=== PATIENT | male | born 1940 | race Caucasian/White ===

== ENCOUNTER 2017-04-20 16:34 | Inpatient (IN) | payer MEDICARE ==
[~2017-04-20] VITALS: Ht 185.4 cm; Wt 121.0 kg
[2017-04-20] MEDS ORDERED: METHYLPREDNISOLONE SOD SUCC 125MG/2ML VIAL ONE (16:47)
[2017-04-20] MEDS ORDERED: MAGNESIUM 2GM PREMIX 50ML 50 ML IV ONE (16:47)
[2017-04-20 16:57] LABS: BASOPHILS % (AUTO) 0.4 % (0.0-5.0); EOSINOPHILS % (AUTO) 1.2 % (0.0-8.0); HEMATOCRIT 30.3 % (42-54); LYMPHOCYTES % (AUTO) 22.7 % (21.0-51.0); MEAN CORPUSCULAR HEMOGLOBIN 27.8 pg (27.0-33.0); MEAN CORPUSCULAR HGB CONC 33.4 g/dL (32.0-36.0); MEAN CORPUSCULAR VOLUME 83.2 fL (79-99); NEUTROPHILS % (AUTO) 66.7 % (40.0-77.0); PLATELET COUNT (AUTO) 294 K/uL (130-400); RED BLOOD CELL COUNT(AUTO) 3.64 MIL/uL (4.50-6.20); RED CELL DISTRIBUTION WIDTH 14.7 % (11.0-15.5); WHITE BLOOD COUNT (AUTO) 7.9 K/uL (4.8-10.8)
[2017-04-20] MEDS ORDERED: IPRATROPIUM/ALBUTEROL SULFATE 3 ML SOLUTION IH ONE ×2 (17:10→18:16)
[2017-04-20 17:17] LABS: B-TYPE NATRIURETIC PEPTIDE 39 pg/mL (0-100); CREATININE 1.5 mg/dL (0.5-1.5); POTASSIUM 3.8 mmol/L (3.5-5.1)
[2017-04-20 17:22] LABS: ALBUMIN 3.2 g/dL (3.5-5.0); BILIRUBIN,TOTAL 0.4 mg/dL (0.2-1.0); TOTAL PROTEIN, SERUM 6.3 g/dL (6.0-8.3)
[2017-04-20] MEDS ORDERED: MAG HYDROX/AL HYDROX/SIMETH ES 30 ML SUSP UDCUP PO PRN (17:30)
[2017-04-20] MEDS ORDERED: GUAIFENESIN-DM 200/20 MG 10 ML PO PRN (17:30)
[2017-04-20] MEDS ORDERED: ACETAMINOPHEN 325 MG TAB PO PRN ×2 (17:30)
[2017-04-20] MEDS ORDERED: LACTULOSE 20 GM/30 ML UDCUP PO PRN (17:30)
[2017-04-20] MEDS ORDERED: ONDANSETRON HCL 4 MG/2 ML VIAL IV PRN (17:30)
[2017-04-20] MEDS ORDERED: AZITHROMYCIN 500MG+NS 250ML 250 ML IV ONE (17:52)
[2017-04-20] MEDS ORDERED: SODIUM CHLORIDE 0.9% 1000ML 1,000 ML IV ONE (19:13)
[2017-04-20] MEDS ORDERED: OSELTAMIVIR PHOSPHATE 75 MG CAP ONE (19:13)
[2017-04-20] MEDS ORDERED: DOXYCYCLINE 100MG+NS 250ML 250 ML IV ONE (19:13)
[2017-04-20] MEDS: INSULIN HUMULIN R 100 UNIT/ML 3ML SQ SCH (21:00)
[2017-04-20] MEDS: SODIUM CHLORIDE 0.9% 1000ML 1,000 ML IV SCH (23:05)
[2017-04-20 23:45] VITALS: BP 141/92
[2017-04-21] MEDS ORDERED: TRAM-355 PO (00:39)
[2017-04-21] MEDS ORDERED: INSU200I SQ (00:39)
[2017-04-21] MEDS ORDERED: SIMV40TA5 PO (00:39)
[2017-04-21] MEDS ORDERED: APIX2.5T PO (00:39)
[2017-04-21] MEDS ORDERED: VALS1TAB81 PO (00:39)
[2017-04-21] MEDS ORDERED: TERA2CAP4 PO (00:39)
[2017-04-21] MEDS ORDERED: LEVO50 PO (00:39)
[2017-04-21] MEDS ORDERED: GLIP5TAB11 PO (00:39)
[2017-04-21] MEDS ORDERED: AMLO10TA2 PO (00:39)
[2017-04-21] MEDS ORDERED: INSU100I21 SQ (00:39)
[2017-04-21] MEDS ORDERED: METHYLPREDNISOLONE SOD SUCC 125MG/2ML VIAL ONE (01:31)
[2017-04-21] MEDS ORDERED: LEVOFLOXACIN 500 MG/D5W 100 ML 100 ML ONE (01:31)
[2017-04-21] MEDS: METHYLPREDNISOLONE SOD SUCC 125MG/2ML VIAL IVP SCH ×3 (01:37→17:27)
[2017-04-21] MEDS: LEVOFLOXACIN 500 MG/D5W 100 ML 100 ML IV SCH ×2 (01:37→02:37)
[2017-04-21] MEDS: IPRATROPIUM/ALBUTEROL SULFATE 3 ML SOLUTION IH SCH ×6 (02:33→21:30)
[2017-04-21 03:42] VITALS: BP 131/79
[2017-04-21 05:00] LABS: HEMATOCRIT 29.4 % (42-54); MEAN CORPUSCULAR HEMOGLOBIN 28.6 pg (27.0-33.0); MEAN CORPUSCULAR HGB CONC 34.2 g/dL (32.0-36.0); MEAN CORPUSCULAR VOLUME 83.8 fL (79-99); PLATELET COUNT (AUTO) 269 K/uL (130-400); RED BLOOD CELL COUNT(AUTO) 3.51 MIL/uL (4.50-6.20); RED CELL DISTRIBUTION WIDTH 14.5 % (11.0-15.5); WHITE BLOOD COUNT (AUTO) 4.7 K/uL (4.8-10.8)
[2017-04-21 05:07] LABS: CREATININE 1.4 mg/dL (0.5-1.5); POTASSIUM 4.2 mmol/L (3.5-5.1)
[2017-04-21] MEDS: INSULIN HUMULIN R 100 UNIT/ML 3ML SQ SCH ×4 (06:34→21:56)
[2017-04-21 07:00] VITALS: BP 146/99
[2017-04-21] MEDS: SODIUM CHLORIDE 0.9% 1000ML 1,000 ML IV SCH ×2 (07:00→08:56)
[2017-04-21] MEDS: OSELTAMIVIR PHOSPHATE 75 MG CAP PO SCH ×2 (08:56→21:59)
[2017-04-21] MEDS: PANTOPRAZOLE SODIUM 40 MG TABLET.DR PO SCH (08:56)
[2017-04-21] MEDS ORDERED: ENOXAPARIN SODIUM 40 MG/0.4 ML SYRINGE SQ SCH (09:00)
[2017-04-21] MEDS: DOXYCYCLINE 100MG+NS 250ML 250 ML IV SCH ×2 (10:08→22:00)
[2017-04-21 11:00] VITALS: BP 139/85
[2017-04-21] MEDS ORDERED: TRAMADOL /APAP 37.5MG/325MG TAB PO PRN (11:15)
[2017-04-21] MEDS: FUROSEMIDE 10 MG/ML 4ML VIAL IV SCH (12:25)
[2017-04-21 16:00] VITALS: BP 135/74
[2017-04-21] MEDS: INSULIN LISPRO 100 UNIT/ML 3ML SQ SCH (17:23)
[2017-04-21] MEDS: INSULIN DETEMIR 10ML 100 UNIT/ML 10ML SQ SCH (17:24)
[2017-04-21 20:00] VITALS: BP 149/77
[2017-04-21] MEDS: APIXABAN 2.5 MG TABLET PO SCH (21:59)
[2017-04-21] MEDS: ATORVASTATIN CALCIUM 20 MG TABLET PO SCH (21:59)
[2017-04-21] MEDS: TERAZOSIN HCL 2 MG CAPSULE PO SCH (22:00)
[2017-04-21] MEDS: GLIPIZIDE 5 MG TABLET PO SCH (22:00)
[2017-04-22] VITALS (7 sets, daily range): BP systolic 120–147; BP diastolic 73–93
[2017-04-22] MEDS: FUROSEMIDE 10 MG/ML 4ML VIAL IV SCH ×3 (00:22→21:08)
[2017-04-22] MEDS: IPRATROPIUM/ALBUTEROL SULFATE 3 ML SOLUTION IH SCH ×6 (01:53→21:52)
[2017-04-22] MEDS: METHYLPREDNISOLONE SOD SUCC 125MG/2ML VIAL IVP SCH ×3 (02:09→18:22)
[2017-04-22 04:19] LABS: HEMATOCRIT 30.1 % (42-54); MEAN CORPUSCULAR HGB CONC 33.7 g/dL (32.0-36.0); MEAN CORPUSCULAR VOLUME 83.2 fL (79-99); PLATELET COUNT (AUTO) 310 K/uL (130-400); RED BLOOD CELL COUNT(AUTO) 3.62 MIL/uL (4.50-6.20); RED CELL DISTRIBUTION WIDTH 14.4 % (11.0-15.5); WHITE BLOOD COUNT (AUTO) 9.9 K/uL (4.8-10.8)
[2017-04-22 04:36] LABS: CREATININE 1.5 mg/dL (0.5-1.5); POTASSIUM 3.9 mmol/L (3.5-5.1)
[2017-04-22 05:01] LABS: B-TYPE NATRIURETIC PEPTIDE 99 pg/mL (0-100)
[2017-04-22] MEDS: INSULIN HUMULIN R 100 UNIT/ML 3ML SQ SCH ×4 (07:15→21:10)
[2017-04-22] MEDS: INSULIN LISPRO 100 UNIT/ML 3ML SQ SCH ×3 (07:16→17:01)
[2017-04-22] MEDS: LEVOTHYROXINE 50 MCG TABLET PO SCH (07:17)
[2017-04-22] MEDS: INSULIN DETEMIR 10ML 100 UNIT/ML 10ML SQ SCH ×2 (07:59→17:01)
[2017-04-22] MEDS: DOXYCYCLINE 100MG+NS 250ML 250 ML IV SCH ×3 (08:43→23:07)
[2017-04-22] MEDS: GLIPIZIDE 5 MG TABLET PO SCH ×2 (08:44→21:07)
[2017-04-22] MEDS: APIXABAN 2.5 MG TABLET PO SCH ×2 (08:44→21:07)
[2017-04-22] MEDS: LOSARTAN/HYDROCHLOROTHIAZIDE 50-12.5MG TABLET PO SCH (08:44)
[2017-04-22] MEDS: OSELTAMIVIR PHOSPHATE 75 MG CAP PO SCH ×2 (08:44→21:07)
[2017-04-22] MEDS: PANTOPRAZOLE SODIUM 40 MG TABLET.DR PO SCH (08:44)
[2017-04-22] MEDS: AMLODIPINE BESYLATE 5 MG TAB PO SCH (08:44)
[2017-04-22] MEDS ORDERED: ALBUTEROL SULFATE 0.083% 2.5 MG/3 ML INH IH SCH (12:00)
[2017-04-22] MEDS: ACETYLCYSTEINE 20% 200MG/ML 4ML VIAL IH SCH ×2 (14:04→18:58)
[2017-04-22] MEDS: BUDESONIDE 0.5 MG/2 ML INH IH SCH (18:52)
[2017-04-22] MEDS: ATORVASTATIN CALCIUM 20 MG TABLET PO SCH (21:07)
[2017-04-22] MEDS: TERAZOSIN HCL 2 MG CAPSULE PO SCH (21:07)
[2017-04-23] MEDS: METHYLPREDNISOLONE SOD SUCC 125MG/2ML VIAL IVP SCH ×3 (00:37→17:34)
[2017-04-23] MEDS: LEVOFLOXACIN 500 MG/D5W 100 ML 100 ML IV SCH (00:37)
[2017-04-23] MEDS: IPRATROPIUM/ALBUTEROL SULFATE 3 ML SOLUTION IH SCH ×4 (01:21→18:53)
[2017-04-23 03:52] VITALS: BP 132/81
[2017-04-23 04:46] LABS: CREATININE 1.6 mg/dL (0.5-1.5); POTASSIUM 3.6 mmol/L (3.5-5.1)
[2017-04-23] MEDS: LEVOTHYROXINE 50 MCG TABLET PO SCH (06:27)
[2017-04-23] MEDS: INSULIN HUMULIN R 100 UNIT/ML 3ML SQ SCH ×4 (06:28→21:00)
[2017-04-23] MEDS: ACETYLCYSTEINE 20% 200MG/ML 4ML VIAL IH SCH (06:30)
[2017-04-23 07:00] VITALS: BP 127/80
[2017-04-23] MEDS: BUDESONIDE 0.5 MG/2 ML INH IH SCH ×2 (07:16→18:53)
[2017-04-23] MEDS: GLIPIZIDE 5 MG TABLET PO SCH ×2 (08:42→20:40)
[2017-04-23] MEDS: LOSARTAN/HYDROCHLOROTHIAZIDE 50-12.5MG TABLET PO SCH (08:42)
[2017-04-23] MEDS: OSELTAMIVIR PHOSPHATE 75 MG CAP PO SCH ×2 (08:42→20:40)
[2017-04-23] MEDS: AMLODIPINE BESYLATE 5 MG TAB PO SCH (08:42)
[2017-04-23] MEDS: APIXABAN 2.5 MG TABLET PO SCH ×2 (08:42→20:40)
[2017-04-23] MEDS: PANTOPRAZOLE SODIUM 40 MG TABLET.DR PO SCH (08:42)
[2017-04-23] MEDS: INSULIN DETEMIR 10ML 100 UNIT/ML 10ML SQ SCH ×2 (08:43→19:02)
[2017-04-23] MEDS: INSULIN LISPRO 100 UNIT/ML 3ML SQ SCH ×3 (08:44→17:32)
[2017-04-23 11:18] VITALS: BP 139/81
[2017-04-23 15:44] VITALS: BP 142/74
[2017-04-23 19:50] VITALS: BP 145/84
[2017-04-23] MEDS: ATORVASTATIN CALCIUM 20 MG TABLET PO SCH (20:40)
[2017-04-23] MEDS: TERAZOSIN HCL 2 MG CAPSULE PO SCH (20:40)
[2017-04-23] MEDS: DOXYCYCLINE 100MG+NS 250ML 250 ML IV SCH (20:41)
[2017-04-23 23:51] VITALS: BP 115/65
[2017-04-24] MEDS: IPRATROPIUM/ALBUTEROL SULFATE 3 ML SOLUTION IH SCH ×4 (00:05→18:40)
[2017-04-24] MEDS: LEVOFLOXACIN 500 MG/D5W 100 ML 100 ML IV SCH (00:21)
[2017-04-24] MEDS: METHYLPREDNISOLONE SOD SUCC 125MG/2ML VIAL IVP SCH ×3 (02:16→18:09)
[2017-04-24 03:54] VITALS: BP 130/87
[2017-04-24 06:09] LABS: CREATININE 1.3 mg/dL (0.5-1.5); POTASSIUM 3.3 mmol/L (3.5-5.1)
[2017-04-24] MEDS: LEVOTHYROXINE 50 MCG TABLET PO SCH (06:39)
[2017-04-24] MEDS: INSULIN LISPRO 100 UNIT/ML 3ML SQ SCH ×3 (06:50→17:04)
[2017-04-24] MEDS: INSULIN HUMULIN R 100 UNIT/ML 3ML SQ SCH ×4 (06:52→21:00)
[2017-04-24 07:00] VITALS: BP 127/81
[2017-04-24] MEDS: BUDESONIDE 0.5 MG/2 ML INH IH SCH ×2 (07:08→18:55)
[2017-04-24] MEDS: DOXYCYCLINE 100MG+NS 250ML 250 ML IV SCH ×2 (08:17→22:06)
[2017-04-24] MEDS: GLIPIZIDE 5 MG TABLET PO SCH ×2 (08:17→22:05)
[2017-04-24] MEDS: OSELTAMIVIR PHOSPHATE 75 MG CAP PO SCH ×2 (08:17→22:05)
[2017-04-24] MEDS: AMLODIPINE BESYLATE 5 MG TAB PO SCH (08:17)
[2017-04-24] MEDS: PANTOPRAZOLE SODIUM 40 MG TABLET.DR PO SCH (08:17)
[2017-04-24] MEDS: LOSARTAN/HYDROCHLOROTHIAZIDE 50-12.5MG TABLET PO SCH (08:17)
[2017-04-24] MEDS: APIXABAN 2.5 MG TABLET PO SCH ×2 (08:17→22:05)
[2017-04-24] MEDS: INSULIN GLARGINE 100 UNITS/ML 10 ML VIAL SQ SCH ×2 (08:25→17:03)
[2017-04-24 11:19] VITALS: BP 144/95
[2017-04-24] MEDS ORDERED: GUAIFENESIN-CODEINE 5 ML SYRUP PO PRN (11:45)
[2017-04-24] MEDS: FUROSEMIDE 10 MG/ML 2ML VIAL IV SCH (12:09)
[2017-04-24 16:00] VITALS: BP 131/87
[2017-04-24] MEDS: ACETYLCYSTEINE 20% 200MG/ML 4ML VIAL IH SCH ×2 (18:41→21:00)
[2017-04-24 20:00] VITALS: BP 127/81
[2017-04-24] MEDS: TERAZOSIN HCL 2 MG CAPSULE PO SCH (22:05)
[2017-04-24] MEDS: ATORVASTATIN CALCIUM 20 MG TABLET PO SCH (22:05)
[2017-04-25] VITALS: BP 111/68
[2017-04-25] MEDS: IPRATROPIUM/ALBUTEROL SULFATE 3 ML SOLUTION IH SCH ×4 (00:17→19:00)
[2017-04-25] MEDS: METHYLPREDNISOLONE SOD SUCC 125MG/2ML VIAL IVP SCH ×3 (02:31→18:01)
[2017-04-25] MEDS: LEVOFLOXACIN 500 MG/D5W 100 ML 100 ML IV SCH (02:32)
[2017-04-25 04:00] VITALS: BP 110/72
[2017-04-25] MEDS: LEVOTHYROXINE 50 MCG TABLET PO SCH (06:39)
[2017-04-25] MEDS: INSULIN LISPRO 100 UNIT/ML 3ML SQ SCH ×3 (06:43→16:57)
[2017-04-25] MEDS: INSULIN HUMULIN R 100 UNIT/ML 3ML SQ SCH ×4 (06:45→21:21)
[2017-04-25 06:51] LABS: CREATININE 1.6 mg/dL (0.5-1.5); POTASSIUM 3.1 mmol/L (3.5-5.1)
[2017-04-25] MEDS: BUDESONIDE 0.5 MG/2 ML INH IH SCH ×2 (07:12→19:11)
[2017-04-25 08:00] VITALS: BP 124/70
[2017-04-25] MEDS: INSULIN GLARGINE 100 UNITS/ML 10 ML VIAL SQ SCH ×2 (08:08→16:56)
[2017-04-25] MEDS: APIXABAN 2.5 MG TABLET PO SCH ×2 (08:09→21:10)
[2017-04-25] MEDS: DOXYCYCLINE 100MG+NS 250ML 250 ML IV SCH ×2 (08:09→21:10)
[2017-04-25] MEDS: FUROSEMIDE 10 MG/ML 2ML VIAL IV SCH (08:09)
[2017-04-25] MEDS: AMLODIPINE BESYLATE 5 MG TAB PO SCH (08:09)
[2017-04-25] MEDS: OSELTAMIVIR PHOSPHATE 75 MG CAP PO SCH (08:10)
[2017-04-25] MEDS: PANTOPRAZOLE SODIUM 40 MG TABLET.DR PO SCH (08:10)
[2017-04-25] MEDS: LOSARTAN/HYDROCHLOROTHIAZIDE 50-12.5MG TABLET PO SCH (08:10)
[2017-04-25] MEDS: GLIPIZIDE 5 MG TABLET PO SCH ×2 (08:10→21:10)
[2017-04-25] MEDS ORDERED: ACETYLCYSTEINE 20% 200MG/ML 4ML VIAL IH SCH (11:30)
[2017-04-25 11:37] VITALS: BP 104/63
[2017-04-25] MEDS: ACETYLCYSTEINE 20% 200MG/ML 4ML VIAL IH SCH ×2 (14:00→21:00)
[2017-04-25 16:00] VITALS: BP 105/64
[2017-04-25 19:00] VITALS: BP 134/72
[2017-04-25] MEDS: ATORVASTATIN CALCIUM 20 MG TABLET PO SCH (21:11)
[2017-04-25] MEDS: TERAZOSIN HCL 2 MG CAPSULE PO SCH (21:17)
[2017-04-26] VITALS: BP 119/74
[2017-04-26] MEDS: IPRATROPIUM/ALBUTEROL SULFATE 3 ML SOLUTION IH SCH ×4 (00:34→19:44)
[2017-04-26] MEDS: METHYLPREDNISOLONE SOD SUCC 125MG/2ML VIAL IVP SCH ×3 (01:31→18:24)
[2017-04-26] MEDS: LEVOFLOXACIN 500 MG/D5W 100 ML 100 ML IV SCH (01:31)
[2017-04-26 04:00] VITALS: BP 130/77
[2017-04-26] MEDS ORDERED: ACETYLCYSTEINE 20% 200MG/ML 4ML VIAL ONE (06:12)
[2017-04-26] MEDS: LEVOTHYROXINE 50 MCG TABLET PO SCH (06:36)
[2017-04-26] MEDS: INSULIN HUMULIN R 100 UNIT/ML 3ML SQ SCH ×4 (06:44→20:52)
[2017-04-26] MEDS: INSULIN LISPRO 100 UNIT/ML 3ML SQ SCH ×3 (06:45→18:30)
[2017-04-26 07:00] VITALS: BP 132/53
[2017-04-26 07:26] LABS: CREATININE 1.5 mg/dL (0.5-1.5)
[2017-04-26 07:29] LABS: POTASSIUM 2.6 mmol/L (3.5-5.1)
[2017-04-26] MEDS: ACETYLCYSTEINE 20% 200MG/ML 4ML VIAL IH SCH (07:35)
[2017-04-26] MEDS: BUDESONIDE 0.5 MG/2 ML INH IH SCH ×2 (08:02→20:02)
[2017-04-26] MEDS: PANTOPRAZOLE SODIUM 40 MG TABLET.DR PO SCH (10:58)
[2017-04-26] MEDS: DOXYCYCLINE 100MG+NS 250ML 250 ML IV SCH ×2 (10:58→20:45)
[2017-04-26] MEDS: AMLODIPINE BESYLATE 5 MG TAB PO SCH (10:58)
[2017-04-26] MEDS: GLIPIZIDE 5 MG TABLET PO SCH ×2 (10:58→20:46)
[2017-04-26] MEDS: APIXABAN 2.5 MG TABLET PO SCH ×2 (10:58→20:45)
[2017-04-26] MEDS: INSULIN GLARGINE 100 UNITS/ML 10 ML VIAL SQ SCH ×2 (11:01→18:29)
[2017-04-26 12:11] VITALS: BP 133/68
[2017-04-26] MEDS ORDERED: POTASSIUM CHLORIDE 10% ELIXIR 20 MEQ/15 ML UDCUP PO PRN (14:15)
[2017-04-26] MEDS ORDERED: LIDOCAINE HCL-MPF 1% 2ML VIAL IVP PRN (14:15)
[2017-04-26] MEDS ORDERED: POTASSIUM CHLORIDE 20MEQ/100ML 100 ML IV PRN (14:15)
[2017-04-26] MEDS: POTASSIUM CHLORIDE 20 MEQ ERTAB PO PRN ×5 (15:26→20:46)
[2017-04-26 16:00] VITALS: BP 157/85
[2017-04-26 19:00] VITALS: BP 131/83
[2017-04-26] MEDS: ATORVASTATIN CALCIUM 20 MG TABLET PO SCH (20:45)
[2017-04-26] MEDS: TERAZOSIN HCL 2 MG CAPSULE PO SCH (20:45)
[2017-04-27] VITALS (9 sets, daily range): BP systolic 80–145; BP diastolic 48–85
[2017-04-27] MEDS: LEVOFLOXACIN 500 MG/D5W 100 ML 100 ML IV SCH (01:07)
[2017-04-27] MEDS: METHYLPREDNISOLONE SOD SUCC 125MG/2ML VIAL IVP SCH ×3 (01:07→18:00)
[2017-04-27] MEDS: IPRATROPIUM/ALBUTEROL SULFATE 3 ML SOLUTION IH SCH (01:31)
[2017-04-27 01:37] LABS: HEMATOCRIT 26.4 % (42-54)
[2017-04-27 04:39] LABS: HEMATOCRIT 25.5 % (42-54)
[2017-04-27 04:40] LABS: CREATININE 1.9 mg/dL (0.5-1.5); POTASSIUM 3.6 mmol/L (3.5-5.1)
[2017-04-27 05:02] LABS: INR 1.15 (0.85-1.15); PARTIAL THROMBOPLASTIN TIME 22.7 SEC (26.3-35.5)
[2017-04-27] MEDS: INSULIN HUMULIN R 100 UNIT/ML 3ML SQ SCH ×4 (06:21→20:39)
[2017-04-27] MEDS: INSULIN LISPRO 100 UNIT/ML 3ML SQ SCH ×3 (06:21→17:52)
[2017-04-27] MEDS: LEVOTHYROXINE 50 MCG TABLET PO SCH (06:22)
[2017-04-27] MEDS: IPRATROPIUM 0.5 MG/2.5 ML INH IH PRN ×4 (07:19→23:43)
[2017-04-27] MEDS: BUDESONIDE 0.5 MG/2 ML INH IH SCH ×2 (07:36→19:41)
[2017-04-27] MEDS: INSULIN GLARGINE 100 UNITS/ML 10 ML VIAL SQ SCH ×2 (08:00→17:56)
[2017-04-27] MEDS: AMLODIPINE BESYLATE 5 MG TAB PO SCH (09:00)
[2017-04-27] MEDS: PANTOPRAZOLE SODIUM 40 MG TABLET.DR PO SCH (09:00)
[2017-04-27] MEDS: GLIPIZIDE 5 MG TABLET PO SCH ×2 (09:00→20:37)
[2017-04-27] MEDS: LOSARTAN 100 MG TABLET PO SCH ×2 (09:00→18:02)
[2017-04-27] MEDS: DOXYCYCLINE 100MG+NS 250ML 250 ML IV SCH ×2 (10:54→20:37)
[2017-04-27] MEDS: TERAZOSIN HCL 2 MG CAPSULE PO SCH (20:37)
[2017-04-27] MEDS: ATORVASTATIN CALCIUM 20 MG TABLET PO SCH (20:38)
[2017-04-28] VITALS (9 sets, daily range): BP systolic 102–131; BP diastolic 57–83
[2017-04-28] MEDS: LEVOFLOXACIN 500 MG/D5W 100 ML 100 ML IV SCH (01:13)
[2017-04-28] MEDS: METHYLPREDNISOLONE SOD SUCC 125MG/2ML VIAL IVP SCH ×3 (01:56→18:29)
[2017-04-28 04:30] LABS: HEMATOCRIT 25.3 % (42-54)
[2017-04-28 04:38] LABS: CREATININE 1.8 mg/dL (0.5-1.5); POTASSIUM 3.3 mmol/L (3.5-5.1)
[2017-04-28] MEDS: INSULIN HUMULIN R 100 UNIT/ML 3ML SQ SCH ×4 (05:26→20:29)
[2017-04-28] MEDS: LEVOTHYROXINE 50 MCG TABLET PO SCH (06:27)
[2017-04-28] MEDS: POTASSIUM CHLORIDE 20 MEQ ERTAB PO PRN (06:27)
[2017-04-28] MEDS: INSULIN LISPRO 100 UNIT/ML 3ML SQ SCH ×3 (06:30→18:23)
[2017-04-28] MEDS: INSULIN GLARGINE 100 UNITS/ML 10 ML VIAL SQ SCH ×2 (06:31→18:27)
[2017-04-28] MEDS: IPRATROPIUM 0.5 MG/2.5 ML INH IH PRN ×4 (07:28→23:45)
[2017-04-28] MEDS: BUDESONIDE 0.5 MG/2 ML INH IH SCH ×2 (07:28→11:58)
[2017-04-28] MEDS: LOSARTAN 100 MG TABLET PO SCH (09:00)
[2017-04-28] MEDS: AMLODIPINE BESYLATE 5 MG TAB PO SCH (09:00)
[2017-04-28] MEDS: GLIPIZIDE 5 MG TABLET PO SCH ×2 (10:34→20:21)
[2017-04-28] MEDS: DOXYCYCLINE 100MG+NS 250ML 250 ML IV SCH ×2 (10:34→20:21)
[2017-04-28] MEDS: PANTOPRAZOLE SODIUM 40 MG TABLET.DR PO SCH (10:34)
[2017-04-28] MEDS ORDERED: INSULIN LISPRO 100 UNIT/ML 3ML SQ ONE (17:59)
[2017-04-28] MEDS: TERAZOSIN HCL 2 MG CAPSULE PO SCH (20:21)
[2017-04-28] MEDS: ATORVASTATIN CALCIUM 20 MG TABLET PO SCH (20:21)
[2017-04-28 21:57] LABS: APPEARANCE BODY FLUID BLOODY (CLEAR); COLOR,BODY FLUID RED (LT YELLOW); SPECIMENTYPE,BODY FLUID PLEURAL
[2017-04-28 21:58] LABS: BODY FLUID RBC 355000 /cu. mm.; BODY FLUID WBC 1550 /cu. mm.; TOTAL VOLUME,BODY FLUID 1000 mL
[2017-04-28 22:08] LABS: BF LYMPHOCYTE 11 %; BF MESOTHELIAL 26 %
[2017-04-29] VITALS: BP 104/65
[2017-04-29] MEDS: LEVOFLOXACIN 500 MG/D5W 100 ML 100 ML IV SCH (01:08)
[2017-04-29] MEDS: METHYLPREDNISOLONE SOD SUCC 125MG/2ML VIAL IVP SCH (02:02)
[2017-04-29 04:00] VITALS: BP 109/69
[2017-04-29 05:48] LABS: HEMATOCRIT 25.7 % (42-54); MEAN CORPUSCULAR HEMOGLOBIN 28.1 pg (27.0-33.0); MEAN CORPUSCULAR HGB CONC 34.1 g/dL (32.0-36.0); MEAN CORPUSCULAR VOLUME 82.2 fL (79-99); PLATELET COUNT (AUTO) 217 K/uL (130-400); RED BLOOD CELL COUNT(AUTO) 3.12 MIL/uL (4.50-6.20); RED CELL DISTRIBUTION WIDTH 14.6 % (11.0-15.5); WHITE BLOOD COUNT (AUTO) 9.8 K/uL (4.8-10.8)
[2017-04-29 05:57] LABS: CREATININE 1.5 mg/dL (0.5-1.5); POTASSIUM 3.5 mmol/L (3.5-5.1)
[2017-04-29 06:05] LABS: B-TYPE NATRIURETIC PEPTIDE 26 pg/mL (0-100)
[2017-04-29] MEDS: LEVOTHYROXINE 50 MCG TABLET PO SCH ×2 (06:25→06:33)
[2017-04-29] MEDS: POTASSIUM CHLORIDE 20 MEQ ERTAB PO PRN ×2 (06:25→06:33)
[2017-04-29] MEDS: INSULIN GLARGINE 100 UNITS/ML 10 ML VIAL SQ SCH ×2 (06:27→17:50)
[2017-04-29] MEDS: INSULIN LISPRO 100 UNIT/ML 3ML SQ SCH ×3 (06:28→17:52)
[2017-04-29] MEDS: IPRATROPIUM 0.5 MG/2.5 ML INH IH PRN ×3 (06:51→18:19)
[2017-04-29 07:00] VITALS: BP 118/46
[2017-04-29] MEDS: BUDESONIDE 0.5 MG/2 ML INH IH SCH ×2 (07:06→18:19)
[2017-04-29] MEDS: INSULIN HUMULIN R 100 UNIT/ML 3ML SQ SCH ×4 (07:30→21:00)
[2017-04-29] MEDS: PANTOPRAZOLE SODIUM 40 MG TABLET.DR PO SCH (10:26)
[2017-04-29] MEDS: AMLODIPINE BESYLATE 5 MG TAB PO SCH (10:26)
[2017-04-29] MEDS: LOSARTAN 100 MG TABLET PO SCH (10:26)
[2017-04-29] MEDS: FUROSEMIDE 10 MG/ML 2ML VIAL IV SCH ×2 (10:27→23:18)
[2017-04-29] MEDS: GLIPIZIDE 5 MG TABLET PO SCH ×2 (10:27→23:19)
[2017-04-29] MEDS: DOXYCYCLINE 100MG+NS 250ML 250 ML IV SCH ×2 (10:27→23:18)
[2017-04-29 11:00] VITALS: BP 115/78
[2017-04-29] MEDS ORDERED: METOPROLOL TARTRATE 25 MG TAB ONE (12:32)
[2017-04-29] MEDS: METOPROLOL TARTRATE 25 MG TAB PO SCH ×2 (12:54→23:20)
[2017-04-29 16:00] VITALS: BP_SYST 116; BP_SYST 145; BP_DIAS 68; BP_DIAS 95
[2017-04-29 20:00] VITALS: BP 113/64
[2017-04-29] MEDS ORDERED: METHYLPREDNISOLONE SOD SUCC 40MG/ML 1ML IVP SCH (21:00)
[2017-04-29] MEDS: ATORVASTATIN CALCIUM 20 MG TABLET PO SCH (23:19)
[2017-04-29] MEDS: TERAZOSIN HCL 2 MG CAPSULE PO SCH (23:19)
[2017-04-30] VITALS (7 sets, daily range): BP systolic 91–157; BP diastolic 49–100
[2017-04-30] MEDS: IPRATROPIUM 0.5 MG/2.5 ML INH IH PRN ×4 (00:18→18:14)
[2017-04-30] MEDS: LEVOFLOXACIN 500 MG/D5W 100 ML 100 ML IV SCH (02:08)
[2017-04-30 04:33] LABS: HEMATOCRIT 26.1 % (42-54); MEAN CORPUSCULAR HEMOGLOBIN 27.1 pg (27.0-33.0); MEAN CORPUSCULAR HGB CONC 33.5 g/dL (32.0-36.0); MEAN CORPUSCULAR VOLUME 81.1 fL (79-99); PLATELET COUNT (AUTO) 229 K/uL (130-400); RED BLOOD CELL COUNT(AUTO) 3.22 MIL/uL (4.50-6.20); RED CELL DISTRIBUTION WIDTH 14.8 % (11.0-15.5)
[2017-04-30 04:45] LABS: B-TYPE NATRIURETIC PEPTIDE 34 pg/mL (0-100)
[2017-04-30 05:03] LABS: CREATININE 1.5 mg/dL (0.5-1.5); POTASSIUM 3.3 mmol/L (3.5-5.1)
[2017-04-30] MEDS: INSULIN HUMULIN R 100 UNIT/ML 3ML SQ SCH ×4 (06:08→21:00)
[2017-04-30] MEDS: INSULIN LISPRO 100 UNIT/ML 3ML SQ SCH ×4 (06:26→17:00)
[2017-04-30] MEDS: LEVOTHYROXINE 50 MCG TABLET PO SCH (06:26)
[2017-04-30] MEDS: POTASSIUM CHLORIDE 20 MEQ ERTAB PO PRN ×3 (06:27→23:05)
[2017-04-30] MEDS: BUDESONIDE 0.5 MG/2 ML INH IH SCH (07:40)
[2017-04-30] MEDS: LOSARTAN 100 MG TABLET PO SCH (09:00)
[2017-04-30] MEDS: INSULIN GLARGINE 100 UNITS/ML 10 ML VIAL SQ SCH ×2 (09:30→17:00)
[2017-04-30] MEDS: DOXYCYCLINE 100MG+NS 250ML 250 ML IV SCH (09:38)
[2017-04-30] MEDS: GLIPIZIDE 5 MG TABLET PO SCH ×2 (09:40→21:21)
[2017-04-30] MEDS: PANTOPRAZOLE SODIUM 40 MG TABLET.DR PO SCH (09:40)
[2017-04-30] MEDS: FUROSEMIDE 10 MG/ML 2ML VIAL IV SCH ×2 (09:40→21:22)
[2017-04-30] MEDS: METOPROLOL TARTRATE 25 MG TAB PO SCH ×2 (09:57→21:27)
[2017-04-30] MEDS ORDERED: PHARMACY COMMUNICATION MISC SCH (20:15)
[2017-04-30] MEDS: TERAZOSIN HCL 2 MG CAPSULE PO SCH (21:21)
[2017-04-30] MEDS: ATORVASTATIN CALCIUM 20 MG TABLET PO SCH (21:21)
[2017-04-30] MEDS: DOXYCYCLINE HYCLATE 100 MG TABLET PO SCH (21:21)
[2017-05-01] MEDS: LEVOFLOXACIN 500 MG/D5W 100 ML 100 ML IV SCH (01:25)
[2017-05-01 03:28] VITALS: BP 98/60
[2017-05-01 05:56] LABS: HEMATOCRIT 26.1 % (42-54); MEAN CORPUSCULAR HGB CONC 34.4 g/dL (32.0-36.0); MEAN CORPUSCULAR VOLUME 81.3 fL (79-99); NUCLEATED RED BLOOD CELLS 0.1 % (0.0-0.19); PLATELET COUNT (AUTO) 219 K/uL (130-400); RED BLOOD CELL COUNT(AUTO) 3.21 MIL/uL (4.50-6.20); RED CELL DISTRIBUTION WIDTH 14.7 % (11.0-15.5); WHITE BLOOD COUNT (AUTO) 7.3 K/uL (4.8-10.8)
[2017-05-01 06:09] LABS: CREATININE 1.4 mg/dL (0.5-1.5); POTASSIUM 3.4 mmol/L (3.5-5.1)
[2017-05-01] MEDS: IPRATROPIUM 0.5 MG/2.5 ML INH IH PRN ×4 (06:33→23:08)
[2017-05-01] MEDS: INSULIN HUMULIN R 100 UNIT/ML 3ML SQ SCH (06:45)
[2017-05-01] MEDS: LEVOTHYROXINE 50 MCG TABLET PO SCH (06:45)
[2017-05-01] MEDS: INSULIN LISPRO 100 UNIT/ML 3ML SQ SCH (06:45)
[2017-05-01] MEDS: POTASSIUM CHLORIDE 20 MEQ ERTAB PO PRN ×2 (06:46→17:42)
[2017-05-01] MEDS: PREDNISONE 5 MG TABLET PO SCH ×4 (06:46→20:48)
[2017-05-01] MEDS: BUDESONIDE 0.5 MG/2 ML INH IH SCH ×2 (06:50→17:49)
[2017-05-01 07:00] VITALS: BP 98/66
[2017-05-01] MEDS: LOSARTAN 100 MG TABLET PO SCH (09:00)
[2017-05-01] MEDS ORDERED: INSULIN GLARGINE 100 UNITS/ML 10 ML VIAL SQ ONE (10:00)
[2017-05-01] MEDS: INSULIN GLARGINE 100 UNITS/ML 10 ML VIAL SQ SCH ×2 (10:02→17:41)
[2017-05-01] MEDS: METOPROLOL TARTRATE 25 MG TAB PO SCH ×2 (10:03→20:48)
[2017-05-01] MEDS: PANTOPRAZOLE SODIUM 40 MG TABLET.DR PO SCH (10:03)
[2017-05-01] MEDS: DOXYCYCLINE HYCLATE 100 MG TABLET PO SCH ×2 (10:03→20:48)
[2017-05-01] MEDS: FUROSEMIDE 10 MG/ML 2ML VIAL IV SCH ×2 (10:04→20:48)
[2017-05-01 11:00] VITALS: BP 123/70
[2017-05-01 16:00] VITALS: BP 122/69
[2017-05-01 19:40] VITALS: BP 104/61
[2017-05-01] MEDS: ATORVASTATIN CALCIUM 20 MG TABLET PO SCH (20:48)
[2017-05-01] MEDS: TERAZOSIN HCL 2 MG CAPSULE PO SCH (20:48)
[2017-05-01] MEDS ORDERED: APIXABAN 2.5 MG TABLET PO ONE (21:11)
[2017-05-01] MEDS: APIXABAN 2.5 MG TABLET PO SCH (21:14)
[2017-05-01 23:38] VITALS: BP 95/61
[2017-05-02] VITALS (7 sets, daily range): BP systolic 109–121; BP diastolic 65–78
[2017-05-02] MEDS: LEVOFLOXACIN 500 MG/D5W 100 ML 100 ML IV SCH (02:12)
[2017-05-02] MEDS: PREDNISONE 5 MG TABLET PO SCH ×5 (06:26→17:35)
[2017-05-02] MEDS: LEVOTHYROXINE 50 MCG TABLET PO SCH (06:26)
[2017-05-02] MEDS: IPRATROPIUM 0.5 MG/2.5 ML INH IH PRN (07:14)
[2017-05-02] MEDS: BUDESONIDE 0.5 MG/2 ML INH IH SCH ×2 (07:45→19:20)
[2017-05-02] MEDS: FUROSEMIDE 10 MG/ML 2ML VIAL IV SCH ×2 (08:18→21:41)
[2017-05-02] MEDS: DOXYCYCLINE HYCLATE 100 MG TABLET PO SCH ×2 (08:18→21:42)
[2017-05-02] MEDS: PANTOPRAZOLE SODIUM 40 MG TABLET.DR PO SCH (08:19)
[2017-05-02] MEDS: METOPROLOL TARTRATE 25 MG TAB PO SCH ×2 (08:19→21:41)
[2017-05-02] MEDS: LOSARTAN 100 MG TABLET PO SCH (08:19)
[2017-05-02] MEDS: APIXABAN 2.5 MG TABLET PO SCH ×2 (10:04→21:41)
[2017-05-02] MEDS: INSULIN GLARGINE 100 UNITS/ML 10 ML VIAL SQ SCH ×2 (10:05→17:38)
[2017-05-02] MEDS ORDERED: INSULIN GLARGINE 100 UNITS/ML 10 ML VIAL SQ ONE (12:30)
[2017-05-02] MEDS ORDERED: PREDNISONE 5 MG TABLET PO SCH (21:00)
[2017-05-02] MEDS: ATORVASTATIN CALCIUM 20 MG TABLET PO SCH (21:41)
[2017-05-02] MEDS: TERAZOSIN HCL 2 MG CAPSULE PO SCH (21:42)
[2017-05-03] MEDS: LEVOFLOXACIN 500 MG/D5W 100 ML 100 ML IV SCH (01:56)
[2017-05-03 03:00] VITALS: BP 123/57
[2017-05-03] MEDS: LEVOTHYROXINE 50 MCG TABLET PO SCH (06:00)
[2017-05-03] MEDS: PREDNISONE 5 MG TABLET PO SCH (06:01)
[2017-05-03] MEDS: BUDESONIDE 0.5 MG/2 ML INH IH SCH (07:22)
[2017-05-03 07:55] VITALS: BP 135/85
[2017-05-03] MEDS: INSULIN GLARGINE 100 UNITS/ML 10 ML VIAL SQ SCH (08:17)
[2017-05-03] MEDS: PANTOPRAZOLE SODIUM 40 MG TABLET.DR PO SCH (08:25)
[2017-05-03] MEDS: FUROSEMIDE 10 MG/ML 2ML VIAL IV SCH (08:26)
[2017-05-03] MEDS: APIXABAN 2.5 MG TABLET PO SCH (08:26)
[2017-05-03] MEDS: LOSARTAN 100 MG TABLET PO SCH (08:26)
[2017-05-03] MEDS: METOPROLOL TARTRATE 25 MG TAB PO SCH (08:26)
[2017-05-03] MEDS: DOXYCYCLINE HYCLATE 100 MG TABLET PO SCH (08:26)
[2017-05-03] MEDS ORDERED: PREDNISONE 5 MG TABLET PO SCH (09:00)
[2017-05-03] MEDS ORDERED: LOSA100T2 PO (10:44)
[2017-05-03] MEDS ORDERED: METO25 PO (10:44)
[2017-05-03] MEDS ORDERED: DOXY100T2 PO (10:44)
[2017-05-03 11:02] VITALS: BP 109/70
[2017-05-04] MEDS ORDERED: PREDNISONE 5 MG TABLET PO SCH (07:00)
[2017-05-05] MEDS ORDERED: PREDNISONE 5 MG TABLET PO SCH (07:00)
[2017-05-06] MEDS ORDERED: PREDNISONE 5 MG TABLET PO SCH (07:00)
== END 2017-05-03 11:40 | disposition home or self-care (01) | DRG 190 ==
LOC: EDH 16:34 → EDHIP 17:30 → OBSVTOIN 17:30 → INTOOBSV 17:30 → 3DH 22:23
PROVIDERS: ADMIT Family Medicine; ATTEND Family Medicine
PROC: 0W9B3ZZ Drainage of Left Pleural Cavity, Percutaneous Approach (ICD-10-PCS; principal; 2017-04-28)
DX: J44.0 Chronic obstructive pulmonary disease with (acute) lower respiratory infection (principal); J18.9 Pneumonia, unspecified organism; J90 Pleural effusion, not elsewhere classified; I48.2 Chronic atrial fibrillation; C50.929 Malignant neoplasm of unspecified site of unspecified male breast; E11.9 Type 2 diabetes mellitus without complications; J98.11 Atelectasis; N28.1 Cyst of kidney, acquired; J20.9 Acute bronchitis, unspecified; I10 Essential (primary) hypertension; E78.5 Hyperlipidemia, unspecified; E87.6 Hypokalemia; K80.20 Calculus of gallbladder without cholecystitis without obstruction; N20.0 Calculus of kidney; E03.9 Hypothyroidism, unspecified; E66.9 Obesity, unspecified; Z79.01 Long term (current) use of anticoagulants; Z79.4 Long term (current) use of insulin; Z95.0 Presence of cardiac pacemaker; Z85.3 Personal history of malignant neoplasm of breast; Z68.35 Body mass index [BMI] 35.0-35.9, adult; Z88.8 Allergy status to other drugs, medicaments and biological substances; Z82.49 Family history of ischemic heart disease and other diseases of the circulatory system; Z80.1 Family history of malignant neoplasm of trachea, bronchus and lung
CPT/HCPCS: 32555; 36415; 71010; 71020; 71045; 71046; 71250; 74000; 74176; 80048; 80053; 82945; 82947; 82948; 83615; 83735; 83880; 83986; 84157; 84484; 85025; 85027; 85610; 85730; 86850; 86900; 86901; 86922; 87071; 87101; 87116; 87205; 87206; 87804; 88108; 88305; 88341; 88342; 89051; 93005; 93306; 94640; 94664; 99291; C9113; J0456; J1650; J1815; J1940; J1956; J2920; J2930; J3475; J3490; J7030; J7512; J7608

== ENCOUNTER 2017-05-09 21:49 | Inpatient (IN) | payer MEDICARE ==
[~2017-05-09] VITALS: Ht 185.4 cm; Wt 127.5 kg
[~2017-05-09 21:49] MED LIST: APIX2.5T PO; DOXY100T2 PO; GLIP5TAB11 PO; INSU100I21 SQ; INSU200I SQ; LEVO50 PO; LOSA100T2 PO; METO25 PO; SIMV40TA5 PO; TERA2CAP4 PO; TRAM-355 PO
[2017-05-09 22:58] LABS: BASOPHILS % (AUTO) 0.6 % (0.0-5.0); EOSINOPHILS % (AUTO) 0.5 % (0.0-8.0); HEMATOCRIT 26.1 % (42-54); LYMPHOCYTES % (AUTO) 20.9 % (21.0-51.0); MEAN CORPUSCULAR HEMOGLOBIN 28.4 pg (27.0-33.0); MEAN CORPUSCULAR VOLUME 83.6 fL (79-99); MONOCYTES % (AUTO) 7.4 % (3.0-13.0); NEUTROPHILS % (AUTO) 70.6 % (40.0-77.0); PLATELET COUNT (AUTO) 167 K/uL (130-400); RED BLOOD CELL COUNT(AUTO) 3.12 MIL/uL (4.50-6.20); RED CELL DISTRIBUTION WIDTH 16.3 % (11.0-15.5); WHITE BLOOD COUNT (AUTO) 6.7 K/uL (4.8-10.8)
[2017-05-09 23:09] LABS: CREATININE 1.2 mg/dL (0.5-1.5); INR 0.98 (0.85-1.15); PARTIAL THROMBOPLASTIN TIME 26.3 SEC (26.3-35.5); POTASSIUM 3.8 mmol/L (3.5-5.1); PROTHROMBIN TIME 10.3 SEC (9.6-11.6)
[2017-05-09 23:23] LABS: ALBUMIN 2.2 g/dL (3.5-5.0); BILIRUBIN,TOTAL 0.5 mg/dL (0.2-1.0)
[2017-05-10 06:01] LABS: BASOPHILS % (AUTO) 1.2 % (0.0-5.0); EOSINOPHILS % (AUTO) 1.1 % (0.0-8.0); HEMATOCRIT 27.4 % (42-54); LYMPHOCYTES % (AUTO) 17.1 % (21.0-51.0); MEAN CORPUSCULAR HEMOGLOBIN 27.6 pg (27.0-33.0); MEAN CORPUSCULAR VOLUME 83.7 fL (79-99); NEUTROPHILS % (AUTO) 72.6 % (40.0-77.0); PLATELET COUNT (AUTO) 156 K/uL (130-400); RED BLOOD CELL COUNT(AUTO) 3.28 MIL/uL (4.50-6.20); RED CELL DISTRIBUTION WIDTH 16.2 % (11.0-15.5); WHITE BLOOD COUNT (AUTO) 6.2 K/uL (4.8-10.8)
[2017-05-10 06:08] LABS: CREATININE 1.1 mg/dL (0.5-1.5); POTASSIUM 3.6 mmol/L (3.5-5.1)
[2017-05-10 06:17] LABS: INR 0.99 (0.85-1.15); PARTIAL THROMBOPLASTIN TIME 23.1 SEC (26.3-35.5); PROTHROMBIN TIME 10.4 SEC (9.6-11.6)
[2017-05-10] MEDS: FUROSEMIDE 10 MG/ML 4ML VIAL IV SCH (12:00)
[2017-05-10] MEDS ORDERED: FUROSEMIDE 10 MG/ML 4ML VIAL ONE (12:01)
[2017-05-10] MEDS ORDERED: LEVOFLOXACIN 500 MG TABLET ONE (12:02)
[2017-05-10 14:14] LABS: APPEARANCE BODY FLUID CLOUDY (CLEAR); SPECIMENTYPE,BODY FLUID PLEURAL
[2017-05-10 14:15] LABS: BODY FLUID RBC 63375 /cu. mm.; BODY FLUID WBC 325 /cu. mm.; COLOR,BODY FLUID RED (LT YELLOW)
[2017-05-10 14:16] LABS: TOTAL VOLUME,BODY FLUID 2000 mL
[2017-05-10 14:32] LABS: BF LYMPHOCYTE 69 %; BF MESOTHELIAL 7 %; BF MONOCYTE 21 %
[2017-05-10] MEDS ORDERED: LACTULOSE 20 GM/30 ML UDCUP PO PRN (18:15)
[2017-05-10] MEDS ORDERED: POTASSIUM CHLORIDE 20 MEQ ERTAB PO PRN (18:15)
[2017-05-10] MEDS ORDERED: ACETAMINOPHEN-CODEINE 300/30MG TAB PO PRN (18:15)
[2017-05-10] MEDS ORDERED: LIDOCAINE HCL-MPF 1% 2ML VIAL IJ PRN (18:15)
[2017-05-10] MEDS ORDERED: GLUCAGON 1MG KIT 1 MG ML IM PRN (18:15)
[2017-05-10] MEDS ORDERED: SODIUM CHLORIDE 0.9% 1000ML 1,000 ML IV SCH (18:15)
[2017-05-10] MEDS ORDERED: POTASSIUM CHLORIDE 10% ELIXIR 20 MEQ/15 ML UDCUP PO PRN (18:15)
[2017-05-10] MEDS ORDERED: CLONIDINE HCL 0.1 MG TABLET PO PRN (18:15)
[2017-05-10] MEDS ORDERED: ACETAMINOPHEN 325 MG TAB PO PRN ×2 (18:15)
[2017-05-10] MEDS ORDERED: DEXTROSE 50%-WATER 50 ML DISP.SYRIN IV PRN (18:15)
[2017-05-10] MEDS ORDERED: GUAIFENESIN-DM 200/20 MG 10 ML PO PRN (18:15)
[2017-05-10] MEDS ORDERED: POTASSIUM CHLORIDE 20MEQ/100ML 100 ML IV PRN (18:15)
[2017-05-10] MEDS ORDERED: NITROGLYCERIN 0.4 MG SL TAB SL PRN (18:15)
[2017-05-10] MEDS ORDERED: ONDANSETRON HCL 4 MG/2 ML VIAL IVP PRN (18:15)
[2017-05-10 18:39] VITALS: BP 102/75
[2017-05-10 19:00] VITALS: BP 105/61
[2017-05-10] MEDS ORDERED: TRAM-355 PO (20:46)
[2017-05-10] MEDS ORDERED: TERA2CAP4 PO (20:46)
[2017-05-10] MEDS ORDERED: LEVO50TA11 PO (20:46)
[2017-05-10] MEDS ORDERED: SIMV40TA5 PO (20:46)
[2017-05-10] MEDS ORDERED: INSU200I SQ (20:46)
[2017-05-10] MEDS ORDERED: INSU100V12 SQ (20:46)
[2017-05-10] MEDS: INSULIN R PO SSI SQ SCH (22:28)
[2017-05-10 23:52] VITALS: BP 110/62
[2017-05-10] MEDS: IPRATROPIUM/ALBUTEROL SULFATE 3 ML SOLUTION IH SCH (23:59)
[2017-05-11] MEDS: FUROSEMIDE 10 MG/ML 4ML VIAL IV SCH (00:56)
[2017-05-11 04:00] VITALS: BP 107/63
[2017-05-11 05:59] LABS: HEMATOCRIT 27.9 % (42-54); MEAN CORPUSCULAR HEMOGLOBIN 28.6 pg (27.0-33.0); MEAN CORPUSCULAR VOLUME 84.1 fL (79-99); PLATELET COUNT (AUTO) 172 K/uL (130-400); RED BLOOD CELL COUNT(AUTO) 3.32 MIL/uL (4.50-6.20); RED CELL DISTRIBUTION WIDTH 16.7 % (11.0-15.5); WHITE BLOOD COUNT (AUTO) 4.9 K/uL (4.8-10.8)
[2017-05-11 06:20] LABS: ALBUMIN 2.2 g/dL (3.5-5.0); BILIRUBIN,TOTAL 0.7 mg/dL (0.2-1.0); CREATININE 1.3 mg/dL (0.5-1.5); POTASSIUM 3.9 mmol/L (3.5-5.1); TOTAL PROTEIN, SERUM 5.3 g/dL (6.0-8.3)
[2017-05-11 06:25] LABS: B-TYPE NATRIURETIC PEPTIDE 113 pg/mL (0-100)
[2017-05-11] MEDS: INSULIN R PO SSI SQ SCH ×4 (07:10→21:00)
[2017-05-11] MEDS: IPRATROPIUM/ALBUTEROL SULFATE 3 ML SOLUTION IH SCH ×3 (07:19→19:25)
[2017-05-11 08:00] VITALS: BP 108/68
[2017-05-11] MEDS ORDERED: CEFTRIAXONE 1GM/D5W 50ML 50 ML IV SCH (11:30)
[2017-05-11] MEDS ORDERED: TRAMADOL /APAP 37.5MG/325MG TAB PO PRN (11:30)
[2017-05-11 11:52] VITALS: BP 135/69
[2017-05-11] MEDS: INSULIN LISPRO 100 UNIT/ML 3ML SQ SCH ×2 (13:41→20:02)
[2017-05-11] MEDS: CEFTRIAXONE SODIUM 1 GM IVP SCH (14:25)
[2017-05-11] MEDS: DOXYCYCLINE 100MG+NS 250ML 250 ML IV SCH (14:32)
[2017-05-11 16:00] VITALS: BP 128/67
[2017-05-11 20:00] VITALS: BP 132/66
[2017-05-11] MEDS: GLIPIZIDE 5 MG TABLET PO SCH (20:01)
[2017-05-11] MEDS ORDERED: TERAZOSIN HCL 2 MG CAPSULE PO SCH (21:00)
[2017-05-11] MEDS ORDERED: ATORVASTATIN CALCIUM 20 MG TABLET PO SCH (21:00)
[2017-05-11] MEDS: INSULIN GLARGINE 100 UNITS/ML 10 ML VIAL SQ SCH (21:40)
[2017-05-11] MEDS: APIXABAN 2.5 MG TABLET PO SCH (21:43)
[2017-05-12] VITALS: BP 108/67
[2017-05-12] MEDS: IPRATROPIUM/ALBUTEROL SULFATE 3 ML SOLUTION IH SCH ×3 (00:12→11:10)
[2017-05-12] MEDS: DOXYCYCLINE 100MG+NS 250ML 250 ML IV SCH (02:29)
[2017-05-12 03:51] VITALS: BP 127/72
[2017-05-12 05:04] LABS: CREATININE 1.3 mg/dL (0.5-1.5); POTASSIUM 3.6 mmol/L (3.5-5.1)
[2017-05-12] MEDS ORDERED: LEVOTHYROXINE 50 MCG TABLET PO SCH (06:30)
[2017-05-12 07:00] VITALS: BP 113/61
[2017-05-12] MEDS: GLIPIZIDE 5 MG TABLET PO SCH (07:27)
[2017-05-12] MEDS: INSULIN R PO SSI SQ SCH ×2 (07:27→12:34)
[2017-05-12] MEDS: INSULIN LISPRO 100 UNIT/ML 3ML SQ SCH ×2 (07:33→12:33)
[2017-05-12] MEDS ORDERED: FUROSEMIDE 40 MG TABLET PO SCH (09:00)
[2017-05-12] MEDS: APIXABAN 2.5 MG TABLET PO SCH (09:10)
[2017-05-12] MEDS: INSULIN GLARGINE 100 UNITS/ML 10 ML VIAL SQ SCH (09:10)
[2017-05-12] MEDS ORDERED: INSULIN GLARGINE 100 UNITS/ML 10 ML VIAL SQ ONE (09:17)
[2017-05-12 11:00] VITALS: BP 98/56
[2017-05-12] MEDS ORDERED: DOXY100C2 PO (11:23)
[2017-05-12] MEDS ORDERED: FURO40TA7 PO (11:23)
[2017-05-12] MEDS ORDERED: AMOX-426 PO (11:23)
[2017-05-12] MEDS ORDERED: POTA8TAB7 PO (11:24)
[2017-05-12] MEDS: CEFTRIAXONE SODIUM 1 GM IVP SCH (12:34)
== END 2017-05-12 13:40 | disposition home or self-care (01) | DRG 181 ==
LOC: EDH 21:49 → EDHIP 05-10 01:58 → OBSVTOIN 05-10 01:58 → INTOOBSV 05-10 01:58 → 3DH 05-10 17:26
PROVIDERS: ADMIT Internal Medicine; ATTEND Internal Medicine
PROC: 0W9B3ZZ Drainage of Left Pleural Cavity, Percutaneous Approach (ICD-10-PCS; principal; 2017-05-10)
DX: C78.2 Secondary malignant neoplasm of pleura (principal); L03.115 Cellulitis of right lower limb; J91.0 Malignant pleural effusion; I48.91 Unspecified atrial fibrillation; L03.116 Cellulitis of left lower limb; C50.922 Malignant neoplasm of unspecified site of left male breast; E11.9 Type 2 diabetes mellitus without complications; E78.5 Hyperlipidemia, unspecified; E66.9 Obesity, unspecified; E03.9 Hypothyroidism, unspecified; G47.33 Obstructive sleep apnea (adult) (pediatric); I10 Essential (primary) hypertension; Z85.3 Personal history of malignant neoplasm of breast; Z88.7 Allergy status to serum and vaccine; Z68.37 Body mass index [BMI] 37.0-37.9, adult
CPT/HCPCS: 32555; 36415; 71045; 71046; 80048; 80053; 82945; 82948; 83615; 83880; 83986; 84157; 84484; 85025; 85027; 85610; 85730; 87071; 87205; 88108; 88305; 89051; 93005; 94640; 94664; A4218; J0696; J1815; J1940; J3490; J7030